=== PATIENT | male | born 1960 | race African-American/Black ===

== ENCOUNTER 2018-08-16 11:44 | Inpatient (IN) | payer OTHER ==
--- NOTE | 2018-08-17 02:01 | HP ---
CIWA Score Nausea/Vomitin (VOMITING X 1) Muscle Tremors: 3 Anxiety: 3 Agitation: 3 Paroxysmal Sweats: 3 Orientation: 1-Uncertain about Date Tacttile Disturbances: 0-None Auditory Disturbances: 0-None Visual Disturbances: 1-Very Mild Sensitivity Headache: 2-Mild CIWA-Ar Total Score: 19 - Admission Criteria OASAS Guidelines: Admission for Medically Managed Detox: Requires at least one of the followin. CIWA greater than 12 2. Seizures within the past 24 hours 3. Delirium tremens within the past 24 hours 4. Hallucinations within the past 24 hours 5. Acute intervention needed for co occurring medical disorder 6. Acute intervention needed for co occurring psychiatric disorder 7. Severe withdrawal that cannot be handled at a lower level of care (continued vomiting, continued diarrhea, abnormal vital signs) requiring intravenous medication and/or fluids 8. Admission ROS [facility] Chief Complaint: ALCOHOL WITHDRAWAL SYMPTOMS Allergies/Adverse Reactions: Allergies Allergy/AdvReac Type Severity Reaction Status Date / Time No Known Allergies Allergy Verified 08/17/18 02:03 History of Present Illness: 57 YEARS OLD MALE WITH A LONG HISTORY OF ALCOHOL DEPENDENCE IS SEEKING ADMISSION TO DETOX. REPORTS INSIGNIFICANT PERIOD OF SOBRIETY. HE HAS MEDICAL HISTORY OF DM TYPE 2, HYPERTENSION AND HYPERCHOLESTEROLEMIA. HE DENIES SUICIDE ATTEMPT OR SUICIDAL IDEATION AT THIS TIME. Exam Limitations: No Limitations - Ebola screening Have you traveled outside of the country in the last 21 days: No Have you had contact with anyone from an Ebola affected area: No Have you been sick,other than usual withdrawal symptoms: No Do you have a fever: No - Review of Systems Constitutional: Chills, Weakness EENT: reports: Sinus Pressure Respiratory: reports: No Symptoms reported Cardiac: reports: No Symptoms Reported GI: reports: Diarrhea (X 4), Poor Appetite, Poor Fluid Intake, Vomiting (X 2), Abdominal cramping : reports: No Symptoms Reported Musculoskeletal: reports: Back Pain, Other (ARTHRITIS-) Integumentary: reports: Dryness Neuro: reports: Headache, Tremors Endocrine: reports: No Symptoms Reported Hematology: reports: No Symptoms Reported Psychiatric: reports: No Sypmtoms Reported, Mood/Affect Appropiate, Orientated x3, Depressed Other Systems: Reviewed and Negative Patient History - Patient Medical History Hx Anemia: No Hx Asthma: No Hx Chronic Obstructive Pulmonary Disease (COPD): No Hx Cancer: No Hx Cardiac Disorders: No Hx Congestive Heart Failure: No Hx Hypertension: Yes (ENALAPRIL) Hx Hypercholesterolemia: Yes (CRESTOR) Hx Pacemaker: No HX Cerebrovascular Accident: No Hx Seizures: No Hx Diabetes: Yes (DM TYPE 2- LEVERMIR) Hx Gastrointestinal Disorders: No Hx Liver Disease: No Hx Genitourinary Disorders: No Hx Sexually Transmitted Disorders: No Hx Renal Disease (ESRD): No Hx Thyroid Disease: No Hx Human Immunodeficiency Virus (HIV): No (NEGATIVE 2017) Hx Hepatitis C: No Hx Depression: No Hx Suicide Attempt: No (dENIES SUICIDAL IDEATION AT THIS TIME) - Patient Surgical History Past Surgical History: No - PPD History Previous Implant?: Yes Documented Results: Negative w/proof Implanted On Prior R Admission?: No PPD to be Administered?: Yes - Reproductive History Patient is a Female of Child Bearing Age (11 -55 yrs old): No (MALE) - Smoking Cessation Smoking history: Current every day smoker Have you smoked in the past 12 months: Yes Aproximately how many cigarettes per day: 5 Hx Chewing Tobacco Use: No Initiated information on smoking cessation: Yes 'Breaking Loose' booklet given: 08/17/18 - Substance & Tx. History Hx Alcohol Use: Yes Substance Use Type: Alcohol, Cocaine, Marijuana Hx Substance Use Treatment: Yes ([facility], [place]) - Substances Abused Alcohol Route: Oral Frequency: Daily Amount used: BEER 7-8 40 OZ. Age of first use: 16 Date of Last Use: 08/16/18 Cocaine Route: Inhalation Frequency: Daily Amount used: $20 Age of first use: 29 Date of Last Use: 08/16/18 Family Disease History - Family Disease History Family History: Denies Admission Physical Exam [facility] - Physical General Appearance: Yes: Moderate Distress, Tremorous, Irritable, Sweating, Anxious HEENTM: Yes: EOMI, Normal ENT Inspection, Normocephalic, Normal Voice, DEBBIE Respiratory: Yes: Lungs Clear, Normal Breath Sounds, No Respiratory Distress Neck: Yes: Supple Breast: Yes: Breast Exam Deferred Cardiology: Yes: Regular Rhythm, Regular Rate Abdominal: Yes: Normal Bowel Sounds Genitourinary: Yes: Within Normal Limits Back: Yes: Normal Inspection Musculoskeletal: Yes: Within Normal Limits Extremities: Yes: Normal Capillary Refill, Normal Inspection 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 intact, Normal Mood/Affect Integumentary: Yes: Warm Lymphatic: Yes: Within Normal Limits - Diagnostic (1) Hypertension Current Visit: Yes Status: Acute (2) Hypercholesteremia Current Visit: Yes Status: Chronic (3) DM type 2 (diabetes mellitus, type 2) Current Visit: Yes Status: Chronic Qualifiers: Diabetes mellitus complication status: with circulatory complication (4) Alcohol dependence with uncomplicated withdrawal Current Visit: Yes Status: Chronic (5) Nicotine dependence Current Visit: Yes Status: Chronic Qualifiers: Nicotine product type: cigarettes Substance use status: uncomplicated Qualified Code(s): F17.210 - Nicotine dependence, cigarettes, uncomplicated Cleared for Admission [facility] - Detox or Rehab S Level of Care: Medically Managed Detox Regimen/Protocol: Librium [facility] Breath Alcohol Content Breath Alcohol Content: 0 Vital Signs - Vital Signs Vital Signs Refused: No Temperature: 97.6 F Pulse Rate: 64 Respiratory Rate: 16 Blood Pressure: 138/80 - Height Height: 5 ft 8 in - Weight Weight: 215 lb Weight Measurement Method: Standing Scale Body Mass Index (BMI): 32.6 - Bowel Function Bowel Movement: Yes Urine Drug Screen - Test Device Lot Number: [id number] Expiration Date: 12/18/19 - Control Is Test Valid: Yes - Results Drug Screen Negative: No Urine Drug Screen Results: THC-Marijuana, GIULIANA-Cocaine, BAR-Barbiturates
[2018-08-17 02:44] VITALS: BMI 32.6
[2018-08-17] MEDS ORDERED: MENTHOL/PHENOL 1 EACH UD MM PRN (03:26)
[2018-08-17] MEDS ORDERED: IBUPROFEN 400 MG TABLET (FP) PO PRN (03:26)
[2018-08-17] MEDS ORDERED: LOPERAMIDE HCL 2 MG CAPSULE PO PRN (03:26)
[2018-08-17] MEDS ORDERED: MAGNESIUM CITRATE 300 ML BOTTLE PO PRN (03:26)
[2018-08-17] MEDS ORDERED: MAG HYDROX/AL HYDROX/SIMETH 30 ML UNIT-DOSE CUP PO PRN (03:26)
[2018-08-17] MEDS ORDERED: NICOTINE POLACRILEX 2 MG GUM BC PRN (03:26)
[2018-08-17] MEDS ORDERED: P-EPHED 60MG/TRIPROLIDI 2.5MG TABLET PO PRN (03:26)
[2018-08-17] MEDS ORDERED: chlordiazePOXIDE HCL 25 MG CAPSULE PO PRN (03:26)
[2018-08-17] MEDS ORDERED: guaiFENesin/D-METHORPHAN HB 10 ML UNIT-DOSE CUPS PO PRN (03:26)
[2018-08-17] MEDS ORDERED: MAGNESIUM HYDROX 2400MG/30ML ORAL SUSPENSION 30 ML CUP PO PRN (03:26)
[2018-08-17] MEDS: chlordiazePOXIDE HCL 25 MG CAPSULE PO SCH ×4 (05:12→22:13)
[2018-08-17] MEDS ORDERED: INSULIN (NOVOLOG) ASPART 100 UNITS/ML 10ML VIAL ONE ×4 (06:49→22:01)
[2018-08-17] MEDS ORDERED: INSULIN SLIDING SCALE (NOVOLOG) 1 VIAL SQ SCH (07:00)
[2018-08-17] MEDS: ENALAPRIL MALEATE 10 MG TABLET (FP) PO SCH (10:57)
[2018-08-17] MEDS: PRENATAL VITAMINS W/ FOLIC ACID TABLET (FP) PO SCH (10:57)
[2018-08-17] MEDS: NICOTINE 14 MG/24 HOURS TOPICAL PATCH TD SCH (10:58)
--- NOTE | 2018-08-17 11:05 | PN ---
[facility] CIWA - CIWA Score Nausea/Vomitin-Mild Nausea/No Vomiting Muscle Tremors: 3 Anxiety: 3 Agitation: 3 Paroxysmal Sweats: 1-Minimal Palms Moist Orientation: 1-Uncertain about Date Tacttile Disturbances: 1-Very Mild Itch/Numbness Auditory Disturbances: 0-None Visual Disturbances: 0-None Headache: 1-Very Mild CIWA-Ar Total Score: 14 [facility] Progress Note (SOAP) Subjective: tremor sweat anxiety trouble sleep at night Objective: 08/17/18 11:07 Vital Signs Temperature 97.3 F L 08/17/18 09:54 Pulse Rate 72 08/17/18 09:54 Respiratory Rate 17 08/17/18 09:54 Blood Pressure 147/84 08/17/18 09:54 O2 Sat by Pulse Oximetry (%) Laboratory Last Values POC Glucometer 306 UNITS (80-120) 08/17/18 06:47 lab pending Assessment: 08/17/18 11:07 withdrawal sx diabetes Plan: continue detox continue monitoring bgm
[2018-08-17] MEDS: ACETAMINOPHEN 325 MG TABLET (FP) PO PRN (11:07)
[2018-08-17] MEDS: INSULIN SLIDING SCALE (NOVOLOG) 1 VIAL SQ SCH ×3 (11:53→22:13)
[2018-08-17] MEDS: GABAPENTIN 300 MG CAPSULE (FP) PO SCH ×2 (13:47→22:12)
[2018-08-17] MEDS: NAPROXEN 375 MG TABLET (FP) PO PRN ×2 (13:48→23:07)
[2018-08-17] MEDS ORDERED: INSULIN (LEVEMIR) 100 UNITS/ML UNITS SQ SCH ×2 (16:30→22:00)
[2018-08-17] MEDS ORDERED: LEVEMIR 40 UNIT SQ SCH (16:30)
[2018-08-17 16:49] LABS: URINE APPEARANCE CLEAR; URINE BILIRUBIN NEGATIVE (<2.0 mg/dL); URINE COLOR LTYELLOW; URINE GLUCOSE (UA) 3+ (NEGATIVE); URINE KETONE NEGATIVE (NEGATIVE); URINE LEUK ESTERASE NEGATIVE (NEGATIVE); URINE NITRITE NEGATIVE (NEGATIVE); URINE PROTEIN NEGATIVE (NEGATIVE); URINE UROBILINOGEN NEGATIVE mg/dL (0.2-1.0)
[2018-08-17] MEDS ORDERED: MELATONIN 5 MG TABLETS PO PRN (22:00)
[2018-08-17] MEDS: THIAMINE HCL 100 MG TABLET (FP) PO SCH (22:12)
[2018-08-17] MEDS: INSULIN (LEVEMIR) 100 UNITS/ML UNITS SQ SCH (22:14)
[2018-08-18] MEDS: chlordiazePOXIDE HCL 25 MG CAPSULE PO SCH ×4 (05:52→23:22)
[2018-08-18] MEDS: GABAPENTIN 300 MG CAPSULE (FP) PO SCH ×3 (05:53→23:22)
[2018-08-18] MEDS: metFORMIN HCL 500 MG TABLET (FP) PO SCH (06:36)
[2018-08-18] MEDS: sitaGLIPtin PHOSPHATE 50 MG TABLET PO SCH (06:37)
[2018-08-18] MEDS: INSULIN SLIDING SCALE (NOVOLOG) 1 VIAL SQ SCH ×5 (06:39→23:25)
[2018-08-18 10:27] LABS: HEMATOCRIT 41.5 % (35.4-49); HEMOGLOBIN 12.9 GM/dL (11.7-16.9); MCH 27.8 pg (25.7-33.7); MCHC 31.1 g/dl (32.0-35.9); MEAN CELL VOLUME 89.6 fl (80-96); MEAN PLT VOLUME 10.8 fl (7.5-11.1); PLATELET COUNT 203 K/MM3 (134-434); RBC 4.64 M/mm3 (4.00-5.60); RDW 13.4 % (11.9-15.9); WHITE BLOOD COUNT 4.4 K/mm3 (4.0-10.0)
[2018-08-18] MEDS: ENALAPRIL MALEATE 10 MG TABLET (FP) PO SCH (10:47)
[2018-08-18] MEDS: NICOTINE 14 MG/24 HOURS TOPICAL PATCH TD SCH (10:47)
[2018-08-18] MEDS: PRENATAL VITAMINS W/ FOLIC ACID TABLET (FP) PO SCH (10:47)
[2018-08-18] MEDS: AMMONIUM LACTATE 12% LOTION 225 GM BOTTLE TP SCH ×2 (10:49→23:24)
[2018-08-18 11:08] LABS: ALBUMIN 3.9 g/dl (3.4-5.0); ALK PHOS 92 U/L (45-117); ANION GAP 9 MMOL/L (8-16); BILIRUBIN,TOTAL 0.4 mg/dL (0.2-1); BLOOD UREA NITROGEN 16 mg/dL (7-18); CALCIUM 8.8 mg/dL (8.5-10.1); CHLORIDE 100 mmol/L (98-107); CO2 27 mmol/L (21-32); GLUCOSE,RANDOM 270 mg/dL (74-106); POTASSIUM 4.4 mmol/L (3.5-5.1); SGOT/AST 19 U/L (15-37); SGPT/ALT 31 U/L (13-61); SODIUM 136 mmol/L (136-145); TOT PROT 7.2 g/dl (6.4-8.2)
[2018-08-18] MEDS ORDERED: INSULIN (NOVOLOG) ASPART 100 UNITS/ML 10ML VIAL ONE ×2 (11:59→23:28)
[2018-08-18] MEDS: INSULIN (LEVEMIR) 100 UNITS/ML UNITS SQ SCH ×2 (12:28→23:24)
--- NOTE | 2018-08-18 15:08 | PN ---
[facility] CIWA - CIWA Score Nausea/Vomitin-No Nausea/No Vomiting Muscle Tremors: 2 Anxiety: 3 Agitation: 3 Paroxysmal Sweats: No Perspiration Orientation: 0-Oriented Tacttile Disturbances: 2-Mild Itch/Numbness/Burn Auditory Disturbances: 0-None Visual Disturbances: 0-None Headache: 0-None Present CIWA-Ar Total Score: 10 S Progress Note (SOAP) Subjective: PATIENT ANXIOUS, SHAKES, C/O BURNING SENSATION TO FEET AND DRY SKIN. Objective: 08/18/18 15:05 Vital Signs Temperature 97.3 F L 08/18/18 13:55 Pulse Rate 79 08/18/18 13:55 Respiratory Rate 18 08/18/18 13:55 Blood Pressure 144/85 08/18/18 13:55 O2 Sat by Pulse Oximetry (%) Laboratory Tests 08/17/18 08/17/18 08/17/18 05:11 06:47 11:00 WBC RBC Hgb Hct MCV MCH MCHC RDW Plt Count MPV Sodium Potassium Chloride Carbon Dioxide Anion Gap BUN Creatinine Creat Clearance w eGFR POC Glucometer 267 306 Random Glucose Calcium Total Bilirubin AST ALT Alkaline Phosphatase Total Protein Albumin Urine Color Ltyellow Urine Appearance Clear Urine pH 7.0 Ur Specific [place] 1.030 Urine Protein Negative Urine Glucose (UA) 3+ H Urine Ketones Negative Urine Blood Negative Urine Nitrite Negative Urine Bilirubin Negative Urine Urobilinogen Negative Ur Leukocyte Esterase Negative 08/17/18 08/17/18 08/17/18 11:46 16:44 21:59 WBC RBC Hgb Hct MCV MCH MCHC RDW Plt Count MPV Sodium Potassium Chloride Carbon Dioxide Anion Gap BUN Creatinine Creat Clearance w eGFR POC Glucometer 281 305 425 Random Glucose Calcium Total Bilirubin AST ALT Alkaline Phosphatase Total Protein Albumin Urine Color Urine Appearance Urine pH Ur Specific [place] Urine Protein Urine Glucose (UA) Urine Ketones Urine Blood Urine Nitrite Urine Bilirubin Urine Urobilinogen Ur Leukocyte Esterase 08/18/18 08/18/18 08/18/18 05:51 07:00 07:00 WBC 4.4 RBC 4.64 Hgb 12.9 Hct 41.5 MCV 89.6 MCH 27.8 MCHC 31.1 L RDW 13.4 Plt Count 203 MPV 10.8 Sodium 136 Potassium 4.4 Chloride 100 Carbon Dioxide 27 Anion Gap 9 BUN 16 Creatinine 1.0 Creat Clearance w eGFR > 60 POC Glucometer 179 Random Glucose 270 H Calcium 8.8 Total Bilirubin 0.4 AST 19 ALT 31 Alkaline Phosphatase 92 Total Protein 7.2 Albumin 3.9 Urine Color Urine Appearance Urine pH Ur Specific [place] Urine Protein Urine Glucose (UA) Urine Ketones Urine Blood Urine Nitrite Urine Bilirubin Urine Urobilinogen Ur Leukocyte Esterase 08/18/18 10:52 WBC RBC Hgb Hct MCV MCH MCHC RDW Plt Count MPV Sodium Potassium Chloride Carbon Dioxide Anion Gap BUN Creatinine Creat Clearance w eGFR POC Glucometer 371 Random Glucose Calcium Total Bilirubin AST ALT Alkaline Phosphatase Total Protein Albumin Urine Color Urine Appearance Urine pH Ur Specific [place] Urine Protein Urine Glucose (UA) Urine Ketones Urine Blood Urine Nitrite Urine Bilirubin Urine Urobilinogen Ur Leukocyte Esterase PE: SKIN WARM AND DRY ALERT AND ORIENTED X 3 EXT FULL ROM, AMB AD LUDWIG, +TREMORS ANXIOUS 08/18/18 15:07 Assessment: 08/18/18 15:07 WITHDRAWAL SX Plan: CONTINUE DETOX ENCOURAGE ORAL FLUIDS CONTINUE TO MONITOR AMMONIA LACTATE LOTION FOR DRY SKIN
[2018-08-18] MEDS: NAPROXEN 375 MG TABLET (FP) PO PRN (23:22)
[2018-08-18] MEDS: THIAMINE HCL 100 MG TABLET (FP) PO SCH (23:25)
[2018-08-19] MEDS: chlordiazePOXIDE 5 MG CAPSULE PO SCH ×2 (05:51→10:17)
[2018-08-19] MEDS: GABAPENTIN 300 MG CAPSULE (FP) PO SCH ×2 (05:52→14:33)
[2018-08-19] MEDS: ACETAMINOPHEN 325 MG TABLET (FP) PO PRN (05:56)
[2018-08-19] MEDS: INSULIN SLIDING SCALE (NOVOLOG) 1 VIAL SQ SCH ×2 (07:22→11:31)
[2018-08-19] MEDS: metFORMIN HCL 500 MG TABLET (FP) PO SCH (07:26)
[2018-08-19] MEDS: sitaGLIPtin PHOSPHATE 50 MG TABLET PO SCH (07:26)
[2018-08-19] MEDS: NICOTINE 14 MG/24 HOURS TOPICAL PATCH TD SCH (10:17)
[2018-08-19] MEDS: ENALAPRIL MALEATE 10 MG TABLET (FP) PO SCH (10:17)
[2018-08-19] MEDS: PRENATAL VITAMINS W/ FOLIC ACID TABLET (FP) PO SCH (10:17)
[2018-08-19] MEDS: NAPROXEN 375 MG TABLET (FP) PO PRN (10:21)
--- NOTE | 2018-08-19 10:41 | PN ---
S Progress Note (SOAP) Subjective: Patient concerned abut management of diabetes medications and blood glucose levels. States he takes his medications even when his blood glucose is low and did not like not receiving Januvia at 7 am. C/o shakes. C/o nausea w/o vomiting or diarrhea. Objective: A&O x 3. Gait steady. Abd S/NT. BS+; Vital Signs 08/19/18 08/19/18 06:00 10:35 Temperature 97.3 F L 97.9 F Pulse Rate 64 79 Respiratory 18 18 Rate Blood Pressure 120/71 143/77 Laboratory Last Values WBC 4.4 K/mm3 (4.0-10.0) 08/18/18 07:00 RBC 4.64 M/mm3 (4.00-5.60) 08/18/18 07:00 Hgb 12.9 GM/dL (11.7-16.9) 08/18/18 07:00 Hct 41.5 % (35.4-49) 08/18/18 07:00 MCV 89.6 fl (80-96) 08/18/18 07:00 MCH 27.8 pg (25.7-33.7) 08/18/18 07:00 MCHC 31.1 g/dl (32.0-35.9) L 08/18/18 07:00 RDW 13.4 % (11.9-15.9) 08/18/18 07:00 Plt Count 203 K/MM3 (134-434) 08/18/18 07:00 MPV 10.8 fl (7.5-11.1) 08/18/18 07:00 Sodium 136 mmol/L (136-145) 08/18/18 07:00 Potassium 4.4 mmol/L (3.5-5.1) 08/18/18 07:00 Chloride 100 mmol/L (98-107) 08/18/18 07:00 Carbon Dioxide 27 mmol/L (21-32) 08/18/18 07:00 Anion Gap 9 MMOL/L (8-16) 08/18/18 07:00 BUN 16 mg/dL (7-18) 08/18/18 07:00 Creatinine 1.0 mg/dL (0.55-1.3) 08/18/18 07:00 Creat Clearance w eGFR > 60 (>60) 08/18/18 07:00 POC Glucometer 328 UNITS (80-120) 08/19/18 10:59 Random Glucose 270 mg/dL (74-106) H 08/18/18 07:00 Calcium 8.8 mg/dL (8.5-10.1) 08/18/18 07:00 Total Bilirubin 0.4 mg/dL (0.2-1) 08/18/18 07:00 AST 19 U/L (15-37) 08/18/18 07:00 ALT 31 U/L (13-61) 08/18/18 07:00 Alkaline Phosphatase 92 U/L (45-117) 08/18/18 07:00 Total Protein 7.2 g/dl (6.4-8.2) 08/18/18 07:00 Albumin 3.9 g/dl (3.4-5.0) 08/18/18 07:00 Urine Color Ltyellow 08/17/18 11:00 Urine Appearance Clear 08/17/18 11:00 Urine pH 7.0 (5.0-8.0) 08/17/18 11:00 Ur Specific [place] 1.030 (1.010-1.035) 08/17/18 11:00 Urine Protein Negative (NEGATIVE) 08/17/18 11:00 Urine Glucose (UA) 3+ (NEGATIVE) H 08/17/18 11:00 Urine Ketones Negative (NEGATIVE) 08/17/18 11:00 Urine Blood Negative (NEGATIVE) 08/17/18 11:00 Urine Nitrite Negative (NEGATIVE) 08/17/18 11:00 Urine Bilirubin Negative (<2.0 mg/dL) 08/17/18 11:00 Urine Urobilinogen Negative mg/dL (0.2-1.0) 08/17/18 11:00 Ur Leukocyte Esterase Negative (NEGATIVE) 08/17/18 11:00 RPR Titer Nonreactive (NONREACTIVE) 08/18/18 07:00 Labs reviewed. Assessment: Withdrawal symptoms. Diabetes Plan: Continue detox. Review and update diabetic medications.
[2018-08-19] MEDS: AMMONIUM LACTATE 12% LOTION 225 GM BOTTLE TP SCH (10:49)
[2018-08-19] MEDS ORDERED: sitaGLIPtin PHOSPHATE 50 MG TABLET PO SCH (10:52)
[2018-08-19] MEDS ORDERED: INSULIN SLIDING SCALE (NOVOLOG) 1 VIAL SQ SCH (11:06)
[2018-08-19] MEDS ORDERED: INSULIN (NOVOLOG) ASPART 100 UNITS/ML 10ML VIAL ONE ×2 (11:17→11:54)
[2018-08-19] MEDS: INSULIN (LEVEMIR) 100 UNITS/ML UNITS SQ SCH (11:31)
[2018-08-19] MEDS ORDERED: sitaGLIPtin PHOSPHATE 50 MG TABLET PO ONE (12:30)
[2018-08-19 14:37] VITALS: BP 159/85; PULSE 76; TEMP 97.5
[2018-08-19] MEDS ORDERED: INSULIN (LEVEMIR) 100 UNITS/ML UNITS SQ SCH (16:30)
--- NOTE | 2018-08-19 17:06 | DS ---
[facility] Detox Discharge Summary Admission Date: 08/17/18 Discharge Date: 08/19/18 - History Present History: Alcohol Dependence, Cocaine Dependence Additional Comments: Admitted w/ c/o alcohol withdrawal symptoms. Hx alcohol use since age 16. Pertinent Past History: Long hx alcohol use disorder w/ co-occuring use of cocaine. Has had multiple detox attempts at other facilities. - Physical Exam Results Vital Signs: Vital Signs Temperature 97.5 F L 08/19/18 14:36 Pulse Rate 76 08/19/18 14:36 Respiratory Rate 18 08/19/18 14:36 Blood Pressure 159/85 08/19/18 14:36 O2 Sat by Pulse Oximetry (%) Pertinent Admission Physical Exam Findings: History of alcohol use disorder admitted for detox. Hx. HTN, DM, Elevated Chol, POC BGM elevated during all but one evaluation during hospitalization. Laboratory Last Values WBC 4.4 K/mm3 (4.0-10.0) 08/18/18 07:00 RBC 4.64 M/mm3 (4.00-5.60) 08/18/18 07:00 Hgb 12.9 GM/dL (11.7-16.9) 08/18/18 07:00 Hct 41.5 % (35.4-49) 08/18/18 07:00 MCV 89.6 fl (80-96) 08/18/18 07:00 MCH 27.8 pg (25.7-33.7) 08/18/18 07:00 MCHC 31.1 g/dl (32.0-35.9) L 08/18/18 07:00 RDW 13.4 % (11.9-15.9) 08/18/18 07:00 Plt Count 203 K/MM3 (134-434) 08/18/18 07:00 MPV 10.8 fl (7.5-11.1) 08/18/18 07:00 Sodium 136 mmol/L (136-145) 08/18/18 07:00 Potassium 4.4 mmol/L (3.5-5.1) 08/18/18 07:00 Chloride 100 mmol/L (98-107) 08/18/18 07:00 Carbon Dioxide 27 mmol/L (21-32) 08/18/18 07:00 Anion Gap 9 MMOL/L (8-16) 08/18/18 07:00 BUN 16 mg/dL (7-18) 08/18/18 07:00 Creatinine 1.0 mg/dL (0.55-1.3) 08/18/18 07:00 Creat Clearance w eGFR > 60 (>60) 08/18/18 07:00 POC Glucometer 328 UNITS (80-120) 08/19/18 10:59 Random Glucose 270 mg/dL (74-106) H 08/18/18 07:00 Calcium 8.8 mg/dL (8.5-10.1) 08/18/18 07:00 Total Bilirubin 0.4 mg/dL (0.2-1) 08/18/18 07:00 AST 19 U/L (15-37) 08/18/18 07:00 ALT 31 U/L (13-61) 08/18/18 07:00 Alkaline Phosphatase 92 U/L (45-117) 08/18/18 07:00 Total Protein 7.2 g/dl (6.4-8.2) 08/18/18 07:00 Albumin 3.9 g/dl (3.4-5.0) 08/18/18 07:00 Urine Color Ltyellow 08/17/18 11:00 Urine Appearance Clear 08/17/18 11:00 Urine pH 7.0 (5.0-8.0) 08/17/18 11:00 Ur Specific [place] 1.030 (1.010-1.035) 08/17/18 11:00 Urine Protein Negative (NEGATIVE) 08/17/18 11:00 Urine Glucose (UA) 3+ (NEGATIVE) H 08/17/18 11:00 Urine Ketones Negative (NEGATIVE) 08/17/18 11:00 Urine Blood Negative (NEGATIVE) 08/17/18 11:00 Urine Nitrite Negative (NEGATIVE) 08/17/18 11:00 Urine Bilirubin Negative (<2.0 mg/dL) 08/17/18 11:00 Urine Urobilinogen Negative mg/dL (0.2-1.0) 08/17/18 11:00 Ur Leukocyte Esterase Negative (NEGATIVE) 08/17/18 11:00 RPR Titer Nonreactive (NONREACTIVE) 08/18/18 07:00 Labs reviewed. - Treatment Hospital Course: Detox Protocol Followed (Patient did not complete detox.), Discharged Condition Good (Patient left A&O x3. Gait steady. Discussed loss of tolerance and risks of overdose with alcohol and/or cocaine. Pt states I know my body.) - Medication Discharge Medications: Ambulatory Orders Enalapril Maleate [Vasotec -] 10 mg PO DAILY 08/17/18 Gabapentin 900 mg PO TID 08/17/18 Gabapentin [Neurontin -] 300 mg PO Q8H 08/17/18 Levemir Vial 40 units SQ BIDAC 08/17/18 Naproxen [Naprosyn] 500 mg PO BID 08/17/18 Rosuvastatin Calcium [Crestor] 40 mg PO HS 08/17/18 - Diagnosis (1) Alcohol dependence with uncomplicated withdrawal Status: Acute (2) Hypertension Status: Acute Qualifiers: Hypertension type: essential hypertension Qualified Code(s): I10 - Essential (primary) hypertension (3) DM type 2 (diabetes mellitus, type 2) Status: Chronic Qualifiers: 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
[2018-08-19] MEDS ORDERED: ROSUVASTATIN CA 20 MG TABLET (FP) PO SCH (22:00)
[2018-08-20] MEDS ORDERED: chlordiazePOXIDE HCL 10 MG CAPSULE PO SCH (05:00)
[2018-08-20] MEDS ORDERED: metFORMIN HCL 500 MG TABLET (FP) PO SCH (07:00)
== END 2018-08-19 15:39 | disposition left against medical advice (07) | DRG 770 ==
LOC: YASAS 11:44 → Y6N 08-17 03:39
PROC: HZ2ZZZZ Detoxification Services for Substance Abuse Treatment (ICD-10-PCS; principal; 2018-08-17)
DX: F10.230 Alcohol dependence with withdrawal, uncomplicated (principal); F14.20 Cocaine dependence, uncomplicated; F17.210 Nicotine dependence, cigarettes, uncomplicated; I10 Essential (primary) hypertension; E78.00 Pure hypercholesterolemia, unspecified; E11.9 Type 2 diabetes mellitus without complications; Z79.4 Long term (current) use of insulin
CPT/HCPCS: 36415; 80053; 81003; 82962; 85027; 86593

== ENCOUNTER 2019-03-16 13:06 | Inpatient (IN) | payer OTHER ==
[2019-03-16 17:27] VITALS: BMI 28.7
--- NOTE | 2019-03-16 19:56 | HP ---
CIWA Score Nausea/Vomitin-No Nausea/No Vomiting Muscle Tremors: 4-Moderate,w/Arms Extend Anxiety: 1-Mildly Anxious Agitation: 1-Slight > Activity Paroxysmal Sweats: 3 (Increased facial moisture) Orientation: 1-Uncertain about Date Tacttile Disturbances: 0-None Auditory Disturbances: 0-None Visual Disturbances: 0-None Headache: 3-Moderate (frontal headache) CIWA-Ar Total Score: 13 - Admission Criteria OAS Guidelines: Admission for Medically Managed Detox: Requires at least one of the followin. CIWA greater than 12 2. Seizures within the past 24 hours 3. Delirium tremens within the past 24 hours 4. Hallucinations within the past 24 hours 5. Acute intervention needed for co occurring medical disorder 6. Acute intervention needed for co occurring psychiatric disorder 7. Severe withdrawal that cannot be handled at a lower level of care (continued vomiting, continued diarrhea, abnormal vital signs) requiring intravenous medication and/or fluids 8. Patient presents the following: CIWA greater than 12 Admission Criteria Met: Admission criteria met Admission ROS [facility] Chief Complaint: Having alcohol withdrawals. Allergies/Adverse Reactions: Allergies Allergy/AdvReac Type Severity Reaction Status Date / Time pork derived (porcine) Allergy Intermediate Itching Verified 03/16/19 17:12 History of Present Illness: 58 yo with alcohol withdrawal presents for detox. States stopped drinking for 1 month after last detox. Alcohol use began at age 16. Current use x past 6 months. States last drink about 3 pm. Cocaine use began at age 29. Current use x oast 6 months. Nicotine use began at age 16. Current use is 1/2 PPD. Marijuana use began at age 16. Use is only 1-2/mothn. Denies benzo use. Denies seizures or overdoses. Last blackout 2 days ago. U-tox + for THC, GIULIANA, BZO. LEONARDO = 0 Denies incarceration or chcf system. PMHx: HTN; DM; Elevated cholesterol. neuropathy feet and legs; Generalized arthritis; Occ bronchitis MHHx: Occ Depression. Denies thoughts of harming self or others. Does not see a psychiatrist. Patient Name: Franki Light Date: 1960 Address: [address] [place] [address] Sex: Male Rx Written Rx Dispensed Drug Quantity Days Supply Prescriber Name 10/02/2018 10/02/2018 chlordiazepoxide 10 mg capsule 45 5 Leonor Rojas Patient Name: Franki Light Date: 1960 Address: [place] [address] Sex: Male Rx Written Rx Dispensed Drug Quantity Days Supply Prescriber Name 08/23/2018 08/26/2018 diazepam 10 mg tablet 18 5 Romie Oakley () Exam Limitations: No Limitations - Ebola screening Have you traveled outside of the country in the last 21 days: No Have you had contact with anyone from an Ebola affected area: No Have you been sick,other than usual withdrawal symptoms: No (Denies recent exposure to measles) Do you have a fever: No - Review of Systems Constitutional: Chills, Diaphoresis EENT: reports: Blurred Vision Respiratory: reports: Cough (Cough x 1 day.) Cardiac: reports: Other (Hx murmur) GI: reports: No Symptoms Reported : reports: No Symptoms Reported Musculoskeletal: reports: Joint Pain (Chronic joint achy pain - "7" Increases w / no pain medication. Improves w/ warm showers) Integumentary: reports: No Symptoms Reported Neuro: reports: Numbness (Neuropathy feet and legs - numbness w/ occ stabing and also pins and needles.), Tremors, Unsteady Gait Endocrine: reports: No Symptoms Reported Hematology: reports: Anemia (On iron) Psychiatric: reports: Judgement Intact, Agitated, Depressed (Denies thoughts of harming self or others), other (Unsure of date. Knows month and year.) Patient History - Patient Medical History Hx Anemia: No Hx Asthma: No Hx Chronic Obstructive Pulmonary Disease (COPD): No Hx Cancer: No Hx Cardiac Disorders: No Hx Congestive Heart Failure: No Hx Hypertension: Yes (ENALAPRIL) Hx Hypercholesterolemia: Yes (CRESTOR) Hx Pacemaker: No HX Cerebrovascular Accident: No Hx Seizures: No Hx Diabetes: Yes (DM TYPE 2- LEVERMIR) Hx Gastrointestinal Disorders: No Hx Liver Disease: No Hx Genitourinary Disorders: No Hx Sexually Transmitted Disorders: No Hx Renal Disease (ESRD): No Hx Thyroid Disease: No Hx Human Immunodeficiency Virus (HIV): No (NEGATIVE 2016) Hx Hepatitis C: No Hx Depression: No Hx Suicide Attempt: No (dENIES SUICIDAL IDEATION AT THIS TIME) - Patient Surgical History Past Surgical History: No - PPD History Previous Implant?: Yes Documented Results: Negative w/proof Implanted On Prior [facility] Admission?: Yes Date: 08/19/18 PPD to be Administered?: No - Smoking Cessation Smoking history: Current every day smoker Have you smoked in the past 12 months: Yes Aproximately how many cigarettes per day: 10 Hx Chewing Tobacco Use: No Initiated information on smoking cessation: Yes 'Breaking Loose' booklet given: 03/16/19 - Substances abused Alcohol Substance route: Oral Frequency: Daily Amount used: 5-7 40 OZ BEER Age of first use: 16 Date of last use: 03/16/19 Cocaine Substance route: Inhalation Frequency: Daily Amount used: $60 Age of first use: 29 Date of last use: 03/15/19 Admission Physical Exam BHS - Vital Signs Vital Signs: Vital Signs - 24 hr 03/16/19 03/16/19 17:11 19:17 Temperature 98.7 F 98.7 F Pulse Rate 84 84 Respiratory 16 16 Rate Blood Pressure 115/74 115/74 - Physical General Appearance: Yes: Nourished, Mild Distress, Tremorous (Gross tremors at rest.), Sweating (Increased facial moisture), Anxious HEENTM: Yes: EOMI, Hearing grossly Normal, Normocephalic, Normal Voice, DEBBIE, Pharynx Normal Respiratory: Yes: Lungs Clear (O2 sat 98%), Normal Breath Sounds, No Respiratory Distress Neck: Yes: No masses,lesions,Nodules, Supple Breast: Yes: Breast Exam Deferred Cardiology: Yes: Regular Rhythm, Regular Rate, S1, S2 Abdominal: Yes: Non Tender (Mid epigastric tenderness upon palpation. No guarding. No rebound.), Soft, Increased Bowel Sounds, Protuberent Genitourinary: Yes: Within Normal Limits Back: Yes: Normal Inspection Musculoskeletal: Yes: full range of Motion, Gait Steady Extremities: Yes: Normal Capillary Refill, Tremors (Gross tremors at rest.) Neurological: Yes: hoop maker machine II-XII NML intact, Alert Integumentary: Yes: Normal Color, Warm Lymphatic: Yes: Within Normal Limits - Diagnostic (1) Cocaine dependence, uncomplicated Current Visit: Yes Status: Chronic (2) Cannabis dependence, uncomplicated Current Visit: Yes Status: Chronic (3) Alcohol dependence with uncomplicated withdrawal Current Visit: Yes Status: Acute (4) Hypertension Current Visit: Yes Status: Chronic Qualifiers: Hypertension type: essential hypertension Qualified Code(s): I10 - Essential (primary) hypertension (5) DM type 2 (diabetes mellitus, type 2) Current Visit: Yes Status: Chronic Qualifiers: Diabetes mellitus long goods drier insulin use: with long goods drier use Diabetes mellitus complication status: with neurologic complications Diabetes mellitus complication detail: with unspecified neuropathy Qualified Code(s): E11.40 - Type 2 diabetes mellitus with diabetic neuropathy, unspecified; Z79.4 - nursing home (current) use of insulin (6) Hypercholesteremia Current Visit: Yes Status: Chronic (7) Nicotine dependence Current Visit: Yes Status: Chronic Qualifiers: Nicotine product type: cigarettes Substance use status: uncomplicated Qualified Code(s): F17.210 - Nicotine dependence, cigarettes, uncomplicated Cleared for Admission BHS - Detox or Rehab [facility] Level of Care: Medically Managed Detox Regimen/Protocol: Librium Claeared for Rehab Admission: No Breathalyzer - Breathalyzer Breathalyzer: 0 Urine Drug Screen - Test Device Lot number: [id number] Expiration date: 11/16/20 - Control Is test valid?: Yes - Results Drug screen NEGATIVE: No Urine drug screen results: THC-Marijuana, GIULIANA-Cocaine, BZO-Benzodiazepines Inpatient Rehab Admission - Rehab Decision to Admit Inpatient rehab admission?: No
[2019-03-16] MEDS ORDERED: MAG HYDROX/AL HYDROX/SIMETH 30 ML UNIT-DOSE CUP PO PRN (20:38)
[2019-03-16] MEDS ORDERED: chlordiazePOXIDE HCL 25 MG CAPSULE PO ONE (20:38)
[2019-03-16] MEDS ORDERED: METHOCARBAMOL 500 MG TABLET PO PRN (20:38)
[2019-03-16] MEDS ORDERED: MAGNESIUM HYDROX 2400MG/30ML ORAL SUSPENSION 30 ML CUP PO PRN (20:38)
[2019-03-16] MEDS ORDERED: chlordiazePOXIDE HCL 25 MG CAPSULE PO PRN (20:38)
[2019-03-16] MEDS ORDERED: NICOTINE POLACRILEX 2 MG GUM BUC PRN (20:38)
[2019-03-16] MEDS ORDERED: guaiFENesin 200 MG/10 ML 10 ML UNIT-DOSE CUPS PO PRN (20:38)
[2019-03-16] MEDS ORDERED: BISMUTH SUBSALICYLATE 524 MG/30 ML UD PO PRN (20:38)
[2019-03-16] MEDS ORDERED: MAGNESIUM CITRATE 300 ML BOTTLE PO PRN (20:38)
[2019-03-16] MEDS ORDERED: MELATONIN 5 MG TABLETS PO PRN (20:38)
[2019-03-16] MEDS ORDERED: MENTHOL/PHENOL 1 EACH UD MM PRN (20:38)
[2019-03-16] MEDS ORDERED: ACETAMINOPHEN 325 MG TABLET (FP) PO PRN ×2 (20:38)
[2019-03-16] MEDS ORDERED: ROSUVASTATIN CA 40 MG TABLET PO SCH (22:00)
[2019-03-16] MEDS ORDERED: INSULIN (LEVEMIR) 100 UNITS/ML UNITS SQ SCH (22:00)
[2019-03-16] MEDS ORDERED: LEVEMIR 40 UNIT SQ SCH (22:00)
[2019-03-16] MEDS ORDERED: INSULIN SLIDING SCALE (NOVOLOG) 1 VIAL SQ ONE (22:08)
[2019-03-16] MEDS: chlordiazePOXIDE HCL 25 MG CAPSULE PO SCH (22:26)
[2019-03-16] MEDS: THIAMINE HCL 100 MG TABLET (FP) PO SCH (22:26)
[2019-03-16] MEDS: NAPROXEN 500 MG TABLET (FP) PO SCH (22:26)
[2019-03-16] MEDS: INSULIN (NOVOLOG) ASPART 100 UNITS/ML 10ML VIAL SQ SCH (22:27)
[2019-03-16] MEDS: ROSUVASTATIN CA 20 MG TABLET (FP) PO SCH (23:12)
[2019-03-17] MEDS: chlordiazePOXIDE HCL 25 MG CAPSULE PO SCH ×4 (06:07→22:11)
[2019-03-17] MEDS ORDERED: LEVEMIR 40 UNIT SQ SCH (07:00)
[2019-03-17] MEDS ORDERED: INSULIN SLIDING SCALE (NOVOLOG) 1 VIAL SQ ONE ×2 (07:50→17:15)
[2019-03-17] MEDS: P-EPHED 60MG/TRIPROLIDI 2.5MG TABLET PO PRN ×2 (08:19→18:32)
[2019-03-17] MEDS: INSULIN (NOVOLOG) ASPART 100 UNITS/ML 10ML VIAL SQ SCH ×3 (08:19→18:30)
[2019-03-17 10:24] LABS: BILIRUBIN,TOTAL 0.5 mg/dL (0.2-1); BLOOD UREA NITROGEN 15.3 mg/dL (7-18); CALCIUM 9.2 mg/dL (8.5-10.1); POTASSIUM 3.9 mmol/L (3.5-5.1)
[2019-03-17 10:25] LABS: HEMATOCRIT 37.4 % (35.4-49); HEMOGLOBIN 11.9 GM/dL (11.7-16.9); MCH 26.5 pg (25.7-33.7); MCHC 31.9 g/dl (32.0-35.9); MEAN CELL VOLUME 83.3 fl (80-96); RBC 4.49 M/mm3 (4.00-5.60); WHITE BLOOD COUNT 4.9 K/mm3 (4.0-10.0)
[2019-03-17] MEDS: PRENATAL VITAMINS W/ FOLIC ACID TABLET (FP) PO SCH (10:34)
[2019-03-17] MEDS: NAPROXEN 500 MG TABLET (FP) PO SCH ×2 (10:34→22:11)
[2019-03-17] MEDS: ENALAPRIL MALEATE 10 MG TABLET (FP) PO SCH (10:34)
[2019-03-17 11:15] LABS: PLATELET COUNT 231 K/MM3 (134-434)
--- NOTE | 2019-03-17 11:26 | PN ---
S CIWA - CIWA Score Nausea/Vomitin Muscle Tremors: 3 Anxiety: 3 Agitation: 2 Paroxysmal Sweats: 3 Orientation: 2-Disoriented Date<2 days Tacttile Disturbances: 1-Very Mild Itch/Numbness Auditory Disturbances: 0-None Visual Disturbances: 0-None Headache: 0-None Present CIWA-Ar Total Score: 16 BHS Progress Note (SOAP) Subjective: Tremors, Anxious, Sweating. Objective: PATIENT A & O X 2 (UNCERTAIN ABOUT CURRENT DAY / DATE). PATIENT OBSERVED AMBULATING ON UNIT UNASSISTED. IN NO ACUTE DISTRESS. 03/17/19 11:28 Vital Signs Temperature 98.3 F 03/17/19 09:06 Pulse Rate 87 03/17/19 09:06 Respiratory Rate 18 03/17/19 09:06 Blood Pressure 117/73 03/17/19 09:06 O2 Sat by Pulse Oximetry (%) Laboratory Tests 03/16/19 03/17/19 03/17/19 22:02 06:06 07:50 WBC 4.9 RBC 4.49 Hgb 11.9 Hct 37.4 MCV 83.3 MCH 26.5 MCHC 31.9 L RDW 17.0 H Plt Count 231 MPV 10.0 Sodium Potassium Chloride Carbon Dioxide Anion Gap BUN Creatinine Est GFR (CKD-EPI)AfAm Est GFR (CKD-EPI)NonAf POC Glucometer 410 150 Random Glucose Calcium Total Bilirubin AST ALT Alkaline Phosphatase Total Protein Albumin 03/17/19 03/17/19 07:50 11:20 WBC RBC Hgb Hct MCV MCH MCHC RDW Plt Count MPV Sodium 139 Potassium 3.9 Chloride 102 Carbon Dioxide 31 Anion Gap 6 L BUN 15.3 Creatinine 1.0 Est GFR (CKD-EPI)AfAm 96.40 Est GFR (CKD-EPI)NonAf 83.18 POC Glucometer 352 Random Glucose 190 H Calcium 9.2 Total Bilirubin 0.5 AST 39 H ALT 36 Alkaline Phosphatase 120 H Total Protein 8.0 Albumin 4.0 LABS NOTED. RPR RESULT PENDING. 03/17/19 11:29 Assessment: 03/17/19 11:28 WITHDRAWAL SYMPTOMS. Plan: CONTINUE DETOX. INCREASE DAILY PO WATER INTAKE. PATIENT REPORTS HISTORY OF PRESCRIBED GABAPENTIN ON OUTPATIENT BASIS FOR TREATMENT OF DIABETIC NEUROPATHY. PATIENT DID NOT BRING MEDICATION WITH HIM AT TIME OF ADMISSION TO DETOX UNIT. PER PHARMACIST EMILENE AT PATIENT'S PHARMACY ([facility], [place], [place]), PATIENT LAST FILLED PRESCRIPTION FOR GABAPENTIN, 800 MG PO TID IN 12/2018 AND THAT HE FILLED SAME PRESCRIPTION FOR LAST FEW CONSECUTIVE MONTHS BEFORE THAT. WILL ORDER GABAPENTIN FOR THIS DETOX ADMISSION.
[2019-03-17] MEDS: GABAPENTIN 400 MG CAPSULE (FP) PO SCH ×3 (13:59→23:00)
[2019-03-17] MEDS ORDERED: PATIENT'S OWN MEDICATION (NON-FORMULARY) (Gabapentin [Neurontin] 800 MG) PO SCH (14:00)
--- NOTE | 2019-03-17 14:11 | PN ---
[facility] Progress Note Note: Patient Reports That He takes Levemir Insulin, 40 Units SQ BID at home. Dose of Levemir changed to 40 Units SQ BID. Will continue to monitor BGM's. Patsy Shannon NP
[2019-03-17] MEDS: FLUTICASONE PROP 0.05% 16 GM NASAL SPRAY NS SCH ×2 (15:12→22:10)
[2019-03-17] MEDS: INSULIN (LEVEMIR) 100 UNITS/ML UNITS SQ SCH (22:07)
[2019-03-17] MEDS: THIAMINE HCL 100 MG TABLET (FP) PO SCH (22:11)
[2019-03-17] MEDS: ROSUVASTATIN CA 20 MG TABLET (FP) PO SCH (22:11)
[2019-03-17] MEDS: guaiFENesin 600 MG TABLET.ER (FP) PO SCH (22:11)
[2019-03-18] MEDS: GABAPENTIN 400 MG CAPSULE (FP) PO SCH ×3 (06:57→22:49)
[2019-03-18] MEDS: chlordiazePOXIDE HCL 25 MG CAPSULE PO SCH ×3 (07:00→17:11)
[2019-03-18] MEDS ORDERED: INSULIN SLIDING SCALE (NOVOLOG) 1 VIAL SQ ONE ×3 (07:55→23:19)
[2019-03-18] MEDS: INSULIN (NOVOLOG) ASPART 100 UNITS/ML 10ML VIAL SQ SCH ×3 (08:06→17:11)
[2019-03-18] MEDS: INSULIN (LEVEMIR) 100 UNITS/ML UNITS SQ SCH ×2 (09:55→22:46)
[2019-03-18] MEDS: ENALAPRIL MALEATE 10 MG TABLET (FP) PO SCH (09:55)
[2019-03-18] MEDS: PRENATAL VITAMINS W/ FOLIC ACID TABLET (FP) PO SCH (09:55)
[2019-03-18] MEDS: NAPROXEN 500 MG TABLET (FP) PO SCH ×2 (09:55→22:49)
[2019-03-18] MEDS: guaiFENesin 600 MG TABLET.ER (FP) PO SCH ×2 (09:55→22:49)
[2019-03-18] MEDS: FLUTICASONE PROP 0.05% 16 GM NASAL SPRAY NS SCH ×2 (09:58→23:14)
[2019-03-18] MEDS ORDERED: INSULIN (NOVOLOG) ASPART 100 UNITS/ML 10ML VIAL SQ ONE ×2 (11:11→22:57)
[2019-03-18] MEDS ORDERED: LOPERAMIDE HCL 2 MG CAPSULE PO ONE (11:42)
--- NOTE | 2019-03-18 11:52 | PN ---
S CIWA - CIWA Score Nausea/Vomitin-No Nausea/No Vomiting Muscle Tremors: 3 Anxiety: 4-Mod. Anxious/Guarded Agitation: 3 Paroxysmal Sweats: 1-Minimal Palms Moist Orientation: 0-Oriented Tacttile Disturbances: 0-None Auditory Disturbances: 0-None Visual Disturbances: 0-None Headache: 0-None Present CIWA-Ar Total Score: 11 BHS Progress Note (SOAP) Subjective: C/o Anxiety,diarrhea x 6-7 times. States pepto bismol not effective. Requesting Levemir as he takes at home--befor breakfars and bedtime. Objective: 03/18/19 11:49 Vital Signs - 8 hr 03/18/19 03/18/19 06:17 09:40 Temperature 97.0 F L 97.1 F L Pulse Rate 76 72 Respiratory 18 18 Rate Blood Pressure 119/76 118/72 Laboratory Tests 03/16/19 03/17/19 03/17/19 22:02 06:06 07:50 WBC 4.9 RBC 4.49 Hgb 11.9 Hct 37.4 MCV 83.3 MCH 26.5 MCHC 31.9 L RDW 17.0 H Plt Count 231 MPV 10.0 Sodium Potassium Chloride Carbon Dioxide Anion Gap BUN Creatinine Est GFR (CKD-EPI)AfAm Est GFR (CKD-EPI)NonAf POC Glucometer 410 150 Random Glucose Calcium Total Bilirubin AST ALT Alkaline Phosphatase Total Protein Albumin RPR Titer 03/17/19 03/17/19 03/17/19 07:50 07:50 11:20 WBC RBC Hgb Hct MCV MCH MCHC RDW Plt Count MPV Sodium 139 Potassium 3.9 Chloride 102 Carbon Dioxide 31 Anion Gap 6 L BUN 15.3 Creatinine 1.0 Est GFR (CKD-EPI)AfAm 96.40 Est GFR (CKD-EPI)NonAf 83.18 POC Glucometer 352 Random Glucose 190 H Calcium 9.2 Total Bilirubin 0.5 AST 39 H ALT 36 Alkaline Phosphatase 120 H Total Protein 8.0 Albumin 4.0 RPR Titer Nonreactive 03/17/19 03/17/19 03/17/19 17:11 22:06 23:59 WBC RBC Hgb Hct MCV MCH MCHC RDW Plt Count MPV Sodium Potassium Chloride Carbon Dioxide Anion Gap BUN Creatinine Est GFR (CKD-EPI)AfAm Est GFR (CKD-EPI)NonAf POC Glucometer 391 424 398 Random Glucose Calcium Total Bilirubin AST ALT Alkaline Phosphatase Total Protein Albumin RPR Titer 03/18/19 03/18/19 06:54 11:05 WBC RBC Hgb Hct MCV MCH MCHC RDW Plt Count MPV Sodium Potassium Chloride Carbon Dioxide Anion Gap BUN Creatinine Est GFR (CKD-EPI)AfAm Est GFR (CKD-EPI)NonAf POC Glucometer 331 428 Random Glucose Calcium Total Bilirubin AST ALT Alkaline Phosphatase Total Protein Albumin RPR Titer Assessment: 03/18/19 11:49 withdrawal sx diarrhea Plan: continue detox imodium x 1 monitor effectiveness. Levemir dose time changed at 0800 & 2200.
--- NOTE | 2019-03-18 20:45 | PN ---
[facility] Progress Note Note: Patient complained of dry skin Vital Signs Temperature 97.1 F L 03/18/19 17:32 Pulse Rate 69 03/18/19 17:32 Respiratory Rate 18 03/18/19 17:32 Blood Pressure 128/79 03/18/19 17:32 O2 Sat by Pulse Oximetry (%) Action: Ammonium lactate lotion ordered
[2019-03-18] MEDS: ROSUVASTATIN CA 20 MG TABLET (FP) PO SCH (22:49)
[2019-03-18] MEDS: chlordiazePOXIDE HCL 10 MG CAPSULE PO SCH (22:49)
[2019-03-18] MEDS: THIAMINE HCL 100 MG TABLET (FP) PO SCH (22:49)
[2019-03-18] MEDS ORDERED: chlordiazePOXIDE HCL 10 MG CAPSULE PO PRN (23:00)
[2019-03-18] MEDS: AMMONIUM LACTATE 12% LOTION 225 GM BOTTLE TP PRN (23:19)
--- NOTE | 2019-03-19 00:09 | EKG ---
Test Reason : Blood Pressure : / mmHG Vent. Rate : 076 BPM Atrial Rate : 076 BPM P-R Int : 154 ms QRS Dur : 088 ms QT Int : 402 ms P-R-T Axes : 063 038 053 degrees QTc Int : 452 ms NORMAL SINUS RHYTHM NORMAL ECG NO PREVIOUS ECGS AVAILABLE Confirmed by MD Glen, Antonio ([id number]) on 03/19/2019 12:09:15 AM Referred By: Confirmed By:Antonio Carroll MD
[2019-03-19] MEDS: GABAPENTIN 400 MG CAPSULE (FP) PO SCH ×3 (06:27→22:01)
[2019-03-19] MEDS: chlordiazePOXIDE HCL 10 MG CAPSULE PO SCH ×4 (06:27→22:01)
[2019-03-19] MEDS: INSULIN (NOVOLOG) ASPART 100 UNITS/ML 10ML VIAL SQ SCH ×3 (06:58→16:51)
[2019-03-19] MEDS: INSULIN (LEVEMIR) 100 UNITS/ML UNITS SQ SCH ×2 (07:00→22:06)
[2019-03-19] MEDS: PRENATAL VITAMINS W/ FOLIC ACID TABLET (FP) PO SCH (10:03)
[2019-03-19] MEDS: guaiFENesin 600 MG TABLET.ER (FP) PO SCH ×2 (10:03→22:01)
[2019-03-19] MEDS: NAPROXEN 500 MG TABLET (FP) PO SCH ×2 (10:03→22:01)
[2019-03-19] MEDS: FLUTICASONE PROP 0.05% 16 GM NASAL SPRAY NS SCH ×2 (10:03→22:02)
[2019-03-19] MEDS: ENALAPRIL MALEATE 10 MG TABLET (FP) PO SCH (10:03)
[2019-03-19] MEDS: LOPERAMIDE HCL 2 MG CAPSULE PO PRN (10:06)
[2019-03-19] MEDS: AMMONIUM LACTATE 12% LOTION 225 GM BOTTLE TP PRN (10:07)
[2019-03-19] MEDS ORDERED: INSULIN SLIDING SCALE (NOVOLOG) 1 VIAL SQ ONE ×3 (11:47→22:06)
--- NOTE | 2019-03-19 14:02 | PN ---
S CIWA - CIWA Score Nausea/Vomitin-No Nausea/No Vomiting Muscle Tremors: 3 Anxiety: 3 Agitation: 1-Slight > Activity Paroxysmal Sweats: No Perspiration Orientation: 0-Oriented Tacttile Disturbances: 2-Mild Itch/Numbness/Burn Auditory Disturbances: 0-None Visual Disturbances: 0-None Headache: 0-None Present CIWA-Ar Total Score: 9 BHS Progress Note (SOAP) Subjective: Tremors, Anxious, Diarrhea. Objective: PATIENT A & O X 3, OBSERVED AMBULATING ON UNIT UNASSISTED. IN NO ACUTE DISTRESS. 03/19/19 14:02 Vital Signs Temperature 97.3 F L 03/19/19 13:15 Pulse Rate 71 03/19/19 13:15 Respiratory Rate 18 03/19/19 13:15 Blood Pressure 155/88 03/19/19 13:15 O2 Sat by Pulse Oximetry (%) Laboratory Tests 03/16/19 03/17/19 03/17/19 22:02 06:06 07:50 WBC 4.9 RBC 4.49 Hgb 11.9 Hct 37.4 MCV 83.3 MCH 26.5 MCHC 31.9 L RDW 17.0 H Plt Count 231 MPV 10.0 Sodium Potassium Chloride Carbon Dioxide Anion Gap BUN Creatinine Est GFR (CKD-EPI)AfAm Est GFR (CKD-EPI)NonAf POC Glucometer 410 150 Random Glucose Calcium Total Bilirubin AST ALT Alkaline Phosphatase Total Protein Albumin RPR Titer 03/17/19 03/17/19 03/17/19 07:50 07:50 11:20 WBC RBC Hgb Hct MCV MCH MCHC RDW Plt Count MPV Sodium 139 Potassium 3.9 Chloride 102 Carbon Dioxide 31 Anion Gap 6 L BUN 15.3 Creatinine 1.0 Est GFR (CKD-EPI)AfAm 96.40 Est GFR (CKD-EPI)NonAf 83.18 POC Glucometer 352 Random Glucose 190 H Calcium 9.2 Total Bilirubin 0.5 AST 39 H ALT 36 Alkaline Phosphatase 120 H Total Protein 8.0 Albumin 4.0 RPR Titer Nonreactive 03/17/19 03/17/19 03/17/19 17:11 22:06 23:59 WBC RBC Hgb Hct MCV MCH MCHC RDW Plt Count MPV Sodium Potassium Chloride Carbon Dioxide Anion Gap BUN Creatinine Est GFR (CKD-EPI)AfAm Est GFR (CKD-EPI)NonAf POC Glucometer 391 424 398 Random Glucose Calcium Total Bilirubin AST ALT Alkaline Phosphatase Total Protein Albumin RPR Titer 03/18/19 03/18/19 03/18/19 06:54 11:05 16:42 WBC RBC Hgb Hct MCV MCH MCHC RDW Plt Count MPV Sodium Potassium Chloride Carbon Dioxide Anion Gap BUN Creatinine Est GFR (CKD-EPI)AfAm Est GFR (CKD-EPI)NonAf POC Glucometer 331 428 298 Random Glucose Calcium Total Bilirubin AST ALT Alkaline Phosphatase Total Protein Albumin RPR Titer 03/18/19 03/19/19 03/19/19 22:45 06:19 11:22 WBC RBC Hgb Hct MCV MCH MCHC RDW Plt Count MPV Sodium Potassium Chloride Carbon Dioxide Anion Gap BUN Creatinine Est GFR (CKD-EPI)AfAm Est GFR (CKD-EPI)NonAf POC Glucometer 462 416 401 Random Glucose Calcium Total Bilirubin AST ALT Alkaline Phosphatase Total Protein Albumin RPR Titer LABS NOTED. Assessment: 03/19/19 14:03 WITHDRAWAL SYMPTOMS. HYPERGLYCEMIA. Plan: CONTINUE DETOX. INCREASE DAILY PO WATER INTAKE. PATIENT REPORTS THAT HE ADMINISTERS REGULAR INSULIN ACCORDING TO SLIDING SCALE IN ADDITION TO REGULARLY SCHEDULED INSULIN (NOVOLOG, LEVEMIR) AT HOME. DUE REPEATED SIGNIFICANTLY ELEVATED BGM'S SINCE PATIENT WAS ADMITTED TO DETOX UNIT, REGULAR INSULIN SLIDING SCALE ORDERED FOR PATIENT IN ADDITION TO STANDING INSULIN ORDERS.
[2019-03-19] MEDS: INSULIN SLIDING SCALE (NOVOLOG) 1 VIAL SQ SCH ×2 (16:55→22:06)
[2019-03-19] MEDS: THIAMINE HCL 100 MG TABLET (FP) PO SCH (22:01)
[2019-03-19] MEDS: ROSUVASTATIN CA 20 MG TABLET (FP) PO SCH (22:01)
[2019-03-20] MEDS ORDERED: INSULIN SLIDING SCALE (NOVOLOG) 1 VIAL SQ ONE (06:15)
[2019-03-20] MEDS: GABAPENTIN 400 MG CAPSULE (FP) PO SCH ×3 (06:31→22:39)
[2019-03-20] MEDS: INSULIN SLIDING SCALE (NOVOLOG) 1 VIAL SQ SCH ×4 (06:36→22:41)
[2019-03-20] MEDS: INSULIN (LEVEMIR) 100 UNITS/ML UNITS SQ SCH ×2 (08:02→22:40)
[2019-03-20] MEDS: INSULIN (NOVOLOG) ASPART 100 UNITS/ML 10ML VIAL SQ SCH ×3 (08:03→16:45)
--- NOTE | 2019-03-20 09:32 | PN ---
S CIWA - CIWA Score Nausea/Vomitin-Mild Nausea/No Vomiting Muscle Tremors: 1-None Visible, but [place] Anxiety: 1-Mildly Anxious Agitation: 1-Slight > Activity Paroxysmal Sweats: No Perspiration Orientation: 0-Oriented Tacttile Disturbances: 0-None Auditory Disturbances: 0-None Visual Disturbances: 0-None Headache: 2-Mild CIWA-Ar Total Score: 6 BHS Progress Note (SOAP) Subjective: alert,irritable,anxious,pain in the left upper gum,gingivitis Objective: 03/20/19 09:29 Vital Signs Temperature 97.9 F 03/20/19 09:13 Pulse Rate 80 03/20/19 09:13 Respiratory Rate 18 03/20/19 09:13 Blood Pressure 134/87 03/20/19 09:13 O2 Sat by Pulse Oximetry (%) 03/20/19 09:29 Laboratory Last Values WBC 4.9 K/mm3 (4.0-10.0) 03/17/19 07:50 RBC 4.49 M/mm3 (4.00-5.60) 03/17/19 07:50 Hgb 11.9 GM/dL (11.7-16.9) 03/17/19 07:50 Hct 37.4 % (35.4-49) 03/17/19 07:50 MCV 83.3 fl (80-96) 03/17/19 07:50 MCH 26.5 pg (25.7-33.7) 03/17/19 07:50 MCHC 31.9 g/dl (32.0-35.9) L 03/17/19 07:50 RDW 17.0 % (11.9-15.9) H 03/17/19 07:50 Plt Count 231 K/MM3 (134-434) 03/17/19 07:50 MPV 10.0 fl (7.5-11.1) 03/17/19 07:50 Sodium 139 mmol/L (136-145) 03/17/19 07:50 Potassium 3.9 mmol/L (3.5-5.1) 03/17/19 07:50 Chloride 102 mmol/L (98-107) 03/17/19 07:50 Carbon Dioxide 31 mmol/L (21-32) 03/17/19 07:50 Anion Gap 6 MMOL/L (8-16) L 03/17/19 07:50 BUN 15.3 mg/dL (7-18) 03/17/19 07:50 Creatinine 1.0 mg/dL (0.55-1.3) 03/17/19 07:50 Est GFR (CKD-EPI)AfAm 96.40 03/17/19 07:50 Est GFR (CKD-EPI)NonAf 83.18 03/17/19 07:50 POC Glucometer 246 UNITS (80-120) 03/20/19 06:32 Random Glucose 190 mg/dL (74-106) H 03/17/19 07:50 Calcium 9.2 mg/dL (8.5-10.1) 03/17/19 07:50 Total Bilirubin 0.5 mg/dL (0.2-1) 03/17/19 07:50 AST 39 U/L (15-37) H 03/17/19 07:50 ALT 36 U/L (13-61) 03/17/19 07:50 Alkaline Phosphatase 120 U/L (45-117) H 03/17/19 07:50 Total Protein 8.0 g/dl (6.4-8.2) 03/17/19 07:50 Albumin 4.0 g/dl (3.4-5.0) 03/17/19 07:50 RPR Titer Nonreactive (NONREACTIVE) 03/17/19 07:50 Assessment: 03/20/19 09:30 withdrawal symptom Plan: continue detox,amoxicillin 500 mgs po tid for 7 days,diabetic control,tinactin cream,discharge in am
[2019-03-20] MEDS: chlordiazePOXIDE HCL 10 MG CAPSULE PO SCH ×2 (10:15→22:40)
[2019-03-20] MEDS: PRENATAL VITAMINS W/ FOLIC ACID TABLET (FP) PO SCH (10:15)
[2019-03-20] MEDS: guaiFENesin 600 MG TABLET.ER (FP) PO SCH ×2 (10:15→22:40)
[2019-03-20] MEDS: FLUTICASONE PROP 0.05% 16 GM NASAL SPRAY NS SCH ×2 (10:15→23:22)
[2019-03-20] MEDS: ENALAPRIL MALEATE 10 MG TABLET (FP) PO SCH (10:15)
[2019-03-20] MEDS: TOLNAFTATE 1% CREAM 15 GM TUBE TP SCH ×2 (10:16→23:22)
[2019-03-20] MEDS: NAPROXEN 500 MG TABLET (FP) PO SCH ×2 (11:09→22:40)
[2019-03-20] MEDS: AMOXICILLIN 500 MG CAPSULE (FP) PO SCH ×2 (13:36→22:39)
[2019-03-20] MEDS: ROSUVASTATIN CA 20 MG TABLET (FP) PO SCH (22:39)
[2019-03-20] MEDS: THIAMINE HCL 100 MG TABLET (FP) PO SCH (23:23)
[2019-03-21] MEDS: GABAPENTIN 400 MG CAPSULE (FP) PO SCH ×2 (05:55→15:09)
[2019-03-21] MEDS: AMOXICILLIN 500 MG CAPSULE (FP) PO SCH ×2 (06:19→15:08)
[2019-03-21] MEDS ORDERED: INSULIN SLIDING SCALE (NOVOLOG) 1 VIAL SQ ONE (08:02)
[2019-03-21] MEDS: INSULIN SLIDING SCALE (NOVOLOG) 1 VIAL SQ SCH ×2 (08:06→11:48)
[2019-03-21] MEDS: INSULIN (NOVOLOG) ASPART 100 UNITS/ML 10ML VIAL SQ SCH ×2 (08:06→11:47)
[2019-03-21] MEDS: INSULIN (LEVEMIR) 100 UNITS/ML UNITS SQ SCH (08:06)
[2019-03-21] MEDS: FLUTICASONE PROP 0.05% 16 GM NASAL SPRAY NS SCH (10:18)
[2019-03-21] MEDS: PRENATAL VITAMINS W/ FOLIC ACID TABLET (FP) PO SCH (10:19)
[2019-03-21] MEDS: NAPROXEN 500 MG TABLET (FP) PO SCH (10:19)
[2019-03-21] MEDS: ENALAPRIL MALEATE 10 MG TABLET (FP) PO SCH (10:19)
[2019-03-21] MEDS: guaiFENesin 600 MG TABLET.ER (FP) PO SCH (10:19)
[2019-03-21] MEDS: TOLNAFTATE 1% CREAM 15 GM TUBE TP SCH (10:19)
[2019-03-21 13:05] VITALS: BP 134/78; PULSE 64; TEMP 97.5
--- NOTE | 2019-03-21 14:19 | DS ---
[facility] Detox Discharge Summary Admission Date: 03/16/19 Discharge Date: 03/21/19 - History Present History: Alcohol Dependence, Cannabis Dependence, Cocaine Dependence Additional Comments: PATIENT RETURNING HOME, REFERRED TO [facility] ([place], [place]) FOR AFTERCARE. AT PATIENT'S REQUEST, PRESCRIPTIONS FOR DISCHARGE MEDICATIONS, INCLUDING AMOXICILLIN (STARTED WHILE PATIENT WAS ADMITTED FOR DETOX DENTAL INFECTION) SENT TO [facility] ([place], [place]) FOR AFTERCARE. PATIENT ADVISED TO FOLLOW-UP WITH ASSOCIATE SOFTWARE ENGINEER AFTER DISCHARGE FROM DETOX FOR GENERAL MEDICAL ASSESSMENT AND FOR HISTORY OF TYPE II DIABETES MELLITUS. PATIENT ALSO ADVISED TO FOLLOW-UP WITH ASSOCIATE SOFTWARE ENGINEER SOON POSSIBLE AFTER DISCHARGE FROM DETOX UNIT FOR DENTAL INFECTION NOTED WHILE ADMITTED FOR DETOX. PATIENT VERBALIZED UNDERSTANDING OF ALL RECOMMENDATIONS PRESENTED TO HIM PRIOR TO DISCHARGE FROM DETOX UNIT. PATIENT WAS DISCHARGED FORM DETOX UNIT IN STABLE MEDICAL CONDITION. Pertinent Past History: HTN, Type II DM, Hypercholesterolemia, Nicotine Dependence, History Of Bronchitis, History Of Neuropathy Of Feet and Legs, Depression, History Of Arthritis. - Physical Exam Results Vital Signs: Vital Signs Temperature 97.5 F L 03/21/19 13:04 Pulse Rate 64 03/21/19 13:04 Respiratory Rate 18 03/21/19 13:04 Blood Pressure 134/78 03/21/19 13:04 O2 Sat by Pulse Oximetry (%) Pertinent Admission Physical Exam Findings: WITHDRAWAL SYMPTOMS. Laboratory Tests 03/16/19 03/17/19 03/17/19 22:02 06:06 07:50 WBC 4.9 RBC 4.49 Hgb 11.9 Hct 37.4 MCV 83.3 MCH 26.5 MCHC 31.9 L RDW 17.0 H Plt Count 231 MPV 10.0 Sodium Potassium Chloride Carbon Dioxide Anion Gap BUN Creatinine Est GFR (CKD-EPI)AfAm Est GFR (CKD-EPI)NonAf POC Glucometer 410 150 Random Glucose Calcium Total Bilirubin AST ALT Alkaline Phosphatase Total Protein Albumin RPR Titer 03/17/19 03/17/19 03/17/19 07:50 07:50 11:20 WBC RBC Hgb Hct MCV MCH MCHC RDW Plt Count MPV Sodium 139 Potassium 3.9 Chloride 102 Carbon Dioxide 31 Anion Gap 6 L BUN 15.3 Creatinine 1.0 Est GFR (CKD-EPI)AfAm 96.40 Est GFR (CKD-EPI)NonAf 83.18 POC Glucometer 352 Random Glucose 190 H Calcium 9.2 Total Bilirubin 0.5 AST 39 H ALT 36 Alkaline Phosphatase 120 H Total Protein 8.0 Albumin 4.0 RPR Titer Nonreactive 03/17/19 03/17/19 03/17/19 17:11 22:06 23:59 WBC RBC Hgb Hct MCV MCH MCHC RDW Plt Count MPV Sodium Potassium Chloride Carbon Dioxide Anion Gap BUN Creatinine Est GFR (CKD-EPI)AfAm Est GFR (CKD-EPI)NonAf POC Glucometer [phone] Random Glucose Calcium Total Bilirubin AST ALT Alkaline Phosphatase Total Protein Albumin RPR Titer 03/18/19 03/18/19 03/18/19 06:54 11:05 16:42 WBC RBC Hgb Hct MCV MCH MCHC RDW Plt Count MPV Sodium Potassium Chloride Carbon Dioxide Anion Gap BUN Creatinine Est GFR (CKD-EPI)AfAm Est GFR (CKD-EPI)NonAf POC Glucometer [phone] Random Glucose Calcium Total Bilirubin AST ALT Alkaline Phosphatase Total Protein Albumin RPR Titer 03/18/19 03/19/19 03/19/19 22:45 06:19 11:22 WBC RBC Hgb Hct MCV MCH MCHC RDW Plt Count MPV Sodium Potassium Chloride Carbon Dioxide Anion Gap BUN Creatinine Est GFR (CKD-EPI)AfAm Est GFR (CKD-EPI)NonAf POC Glucometer [phone] Random Glucose Calcium Total Bilirubin AST ALT Alkaline Phosphatase Total Protein Albumin RPR Titer 03/19/19 03/19/19 03/20/19 16:20 21:15 06:32 WBC RBC Hgb Hct MCV MCH MCHC RDW Plt Count MPV Sodium Potassium Chloride Carbon Dioxide Anion Gap BUN Creatinine Est GFR (CKD-EPI)AfAm Est GFR (CKD-EPI)NonAf POC Glucometer [phone] Random Glucose Calcium Total Bilirubin AST ALT Alkaline Phosphatase Total Protein Albumin RPR Titer 03/20/19 03/20/19 03/20/19 11:22 16:34 20:45 WBC RBC Hgb Hct MCV MCH MCHC RDW Plt Count MPV Sodium Potassium Chloride Carbon Dioxide Anion Gap BUN Creatinine Est GFR (CKD-EPI)AfAm Est GFR (CKD-EPI)NonAf POC Glucometer [phone] Random Glucose Calcium Total Bilirubin AST ALT Alkaline Phosphatase Total Protein Albumin RPR Titer 03/21/19 03/21/19 05:53 11:46 WBC RBC Hgb Hct MCV MCH MCHC RDW Plt Count MPV Sodium Potassium Chloride Carbon Dioxide Anion Gap BUN Creatinine Est GFR (CKD-EPI)AfAm Est GFR (CKD-EPI)NonAf POC Glucometer [phone] Random Glucose Calcium Total Bilirubin AST ALT Alkaline Phosphatase Total Protein Albumin RPR Titer LABS NOTED. - Treatment Hospital Course: Detox Protocol Followed, Detoxed Safely, Responded well, Discharged Condition Good - Medication Discharge Medications: Ambulatory Orders Levemir Vial 40 units SQ BIDAC 08/17/18 Rosuvastatin Calcium [Crestor] 40 mg PO HS 08/17/18 Gabapentin [Neurontin] 800 mg PO Q8H 03/16/19 Amoxicillin - [Amoxicillin 500mg Capsule -] 500 mg PO TID 7 Days #21 capsule 12/05 Enalapril Maleate [Vasotec -] 10 mg PO DAILY 30 Days #30 tablet 03/21/19 Insulin Aspart [Novolog] 10 units SQ TID #1 box 03/21/19 Insulin Detemir [Levemir Flextouch] 40 unit SQ BID #2 box 03/21/19 Pen Needle, Diabetic [1St Tier Unifine Pentips Plus] 1 each MC ASDIR #2 box 12/05 - Diagnosis (1) Alcohol dependence with uncomplicated withdrawal Current Visit: Yes Status: Acute (2) Cannabis dependence, uncomplicated Current Visit: Yes Status: Chronic (3) Cocaine dependence, uncomplicated Current Visit: Yes Status: Chronic (4) DM type 2 (diabetes mellitus, type 2) Current Visit: Yes Status: Chronic Qualifiers: Diabetes mellitus exterminator helper termite insulin use: with exterminator helper termite use Diabetes mellitus complication status: with neurologic complications Diabetes mellitus complication detail: with unspecified neuropathy Qualified Code(s): E11.40 - Type 2 diabetes mellitus with diabetic neuropathy, unspecified; Z79.4 - terminal press operator (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
[2019-03-21] MEDS: LOPERAMIDE HCL 2 MG CAPSULE PO PRN (15:15)
== END 2019-03-21 15:40 | disposition home or self-care (01) | DRG 774 ==
LOC: YASAS 13:06 → Y3N 20:55
PROVIDERS: ADMIT Surgery; ATTEND Surgery
PROC: HZ2ZZZZ Detoxification Services for Substance Abuse Treatment (ICD-10-PCS; principal; 2019-03-16)
DX: F10.230 Alcohol dependence with withdrawal, uncomplicated (principal); F13.20 Sedative, hypnotic or anxiolytic dependence, uncomplicated; F14.20 Cocaine dependence, uncomplicated; F12.20 Cannabis dependence, uncomplicated; F17.210 Nicotine dependence, cigarettes, uncomplicated; F32.9 Major depressive disorder, single episode, unspecified; I10 Essential (primary) hypertension; E78.00 Pure hypercholesterolemia, unspecified; E11.65 Type 2 diabetes mellitus with hyperglycemia; E11.42 Type 2 diabetes mellitus with diabetic polyneuropathy; Z79.4 Long term (current) use of insulin; L85.3 Xerosis cutis; M17.10 Unilateral primary osteoarthritis, unspecified knee
CPT/HCPCS: 36415; 80053; 82962; 85027; 86593; 93005; 93010